=== PATIENT | female | born 1950 | race Caucasian/White ===

== ENCOUNTER 2018-08-31 18:00 | Inpatient (IN) | payer MEDICARE, OTHER ==
[2018-08-31] VITALS (169 sets, daily range): BP systolic 98–111; BP diastolic 45–93; PULSE 63–70; TEMP 97.5–97.6; O2SAT 76–100
[~2018-08-31] VITALS: Ht 149.9 cm; Wt 72.1 kg
--- NOTE | 2018-08-31 17:42 | NUR ---
Patient arrived to ICU room 1 via EMS from [facility]. Patient was moved to the bed and placed on the environmental monitoring specialist. All vital signs stable at this time. Patient's daughter here with her. Patient complaining of pain to her lower abdomen, but states it is from the catheter. She denies any further needs at this time. Blood sugar checked and it was found to be 62. 8 oz of orange juice given.
--- NOTE | 2018-08-31 18:30 | NUR ---
PATIENT'S DAUGHTER STATES THAT ALL OF HER MEDICATIONS ARE IN HER CAR AND THAT SHE WILL BRING THEM IN BEFORE SHE LEAVES FOR THE NIGHT. SO I WAS UNABLE TO DO PATIENTS MEDICATION REQ.
--- NOTE | 2018-08-31 19:15 | NUR ---
REPORT GIVEN TO RAMÓN AMBRIZ.
--- NOTE | 2018-08-31 19:28 | NUR ---
BLOOD GLUCOSE FOUND TO BE 57. D5NS INCREASED TO 75 ML/HR AND FOOD TRAY HAD ARRIVED.
--- NOTE | 2018-08-31 20:30 | NUR ---
PT CONFUSED. THINKS SHES IN [facility] AND THAT ITS MARCH 2020. PT DOES FOLLOW COMMANDS, BUT TAKES TIME TO PROCESS WHAT IS ASKED.
[2018-08-31 20:50] LABS: BILIRUBIN,TOTAL 0.3 mg/dL (0.0-1.0); POTASSIUM 4.1 mmol/L (3.4-5.0); TOTAL PROTEIN 6.4 gm/dL (6.4-8.2)
[2018-08-31 20:54] LABS: BASO # 0.1 (0.0-0.2); BASO % 0.6 % (0.0-2.0); EOS # 0.1 (0.0-0.7); GRAN # 8.8 (1.4-6.5); GRAN % 71.6 % (42.2-75.2); LYMPH # 1.8 (1.2-3.4); LYMPH % 14.2 % (20.0-51.0); MEAN CELL VOLUME 88 fl (80.0-100.0); MEAN CORPUSCULAR HGB CONC 31 g/dl (33.0-37.0); MEAN PLATELET VOLUME 9.8 fl (7.4-10.4); MONO # 1.5 (0.1-0.6); MONO % 12.2 % (1.7-9.3); PLATELET COUNT 520 K/mm3 (130-400); RED BLOOD COUNT 3.47 M/mm3 (4.10-5.30); REDCELL DISTRIBUTION WIDTH-CV 19.6 % (11.5-14.5)
[2018-08-31 20:55] LABS: PROTHROMBIN TIME 11.8 SECONDS (9.7-12.8)
[2018-08-31 21:00] LABS: HEMATOCRIT 30.4 % (37.0-47.0); HEMOGLOBIN 9.5 g/dl (12.5-16.0); MEAN CORPUSCULAR HEMOGLOBIN 27 pg (27.0-31.0)
[2018-08-31 21:00] LABS: CREATININE, serum 6.25 mg/dL (0.52-1.25)
[2018-09-01] VITALS (848 sets, daily range): BP systolic 87–131; BP diastolic 41–61; PULSE 69–108; TEMP 97.3–98.8; O2SAT 73–100
[2018-09-01 03:41] LABS: BASO # 0.1 (0.0-0.2); BASO % 0.8 % (0.0-2.0); EOS # 0.3 (0.0-0.7); EOS % 3.3 % (0-4.0); GRAN # 7.3 (1.4-6.5); GRAN % 70.7 % (42.2-75.2); LYMPH # 1.3 (1.2-3.4); LYMPH % 12.4 % (20.0-51.0); MEAN CELL VOLUME 88 fl (80.0-100.0); MEAN CORPUSCULAR HGB CONC 31 g/dl (33.0-37.0); MEAN PLATELET VOLUME 9.7 fl (7.4-10.4); MONO # 1.3 (0.1-0.6); MONO % 12.4 % (1.7-9.3); PLATELET COUNT 460 K/mm3 (130-400); RED BLOOD COUNT 3.14 M/mm3 (4.10-5.30); REDCELL DISTRIBUTION WIDTH-CV 19.8 % (11.5-14.5)
[2018-09-01 03:43] LABS: HEMATOCRIT 27.5 % (37.0-47.0); HEMOGLOBIN 8.6 g/dl (12.5-16.0); MEAN CORPUSCULAR HEMOGLOBIN 27 pg (27.0-31.0)
[2018-09-01 03:53] LABS: CHOLESTEROL RISK RATIO 3.8; POTASSIUM 4.2 mmol/L (3.4-5.0)
[2018-09-01 04:07] LABS: CREATININE, serum 5.85 mg/dL (0.52-1.25)
[2018-09-01 04:24] LABS: ALBUMIN 2.6 gm/dL (3.5-5.0); BILIRUBIN,TOTAL 0.2 mg/dL (0.0-1.0); TOTAL PROTEIN 5.6 gm/dL (6.4-8.2)
--- NOTE | 2018-09-01 04:30 | NUR ---
PT THINKS SHES IN [facility] AND ITS MARCH 2020. PT RANDOMLY TALKING ABOUT BARKING DOGS. AT TIMES HAS NORMAL SPEECH, BUT REVERTS BACK OFTEN TO INTERMITTENT CONFUSION.
[2018-09-01] MEDS ORDERED: HCTZ 25MG TAB25 MG PO (07:32)
[2018-09-01] MEDS ORDERED: VASOTEC20 MG PO (07:34)
[2018-09-01] MEDS ORDERED: GLUCOPHAGE XR500 M1 PO (07:35)
[2018-09-01] MEDS ORDERED: CELLCEPT 5500 MG/TAB PO (07:37)
[2018-09-01] MEDS ORDERED: LEXAPRO 10MG10 MG PO (07:38)
[2018-09-01] MEDS ORDERED: METOPROLOL PO (07:39)
[2018-09-01] MEDS ORDERED: SINEQUAN 1010 MG/CAP PO (07:40)
[2018-09-01] MEDS ORDERED: ASPIRIN 81M81 MG/TA2 PO (07:41)
[2018-09-01] MEDS ORDERED: LIPITOR 40MG TA40 MG PO (07:42)
[2018-09-01] MEDS ORDERED: SYNTHROID0.05 MG/TA PO (07:42)
--- NOTE | 2018-09-01 07:50 | NUR ---
Pt AAOx2, able to state: name, hospitalization. Unable to state city, date, year. Follows commands correctly. Conferstation confused and inappropriate. Pt stating she is seeing smoke fill the room - anxiety denied and no anxiety appears to be present. Pt exhibiting bilateral arm tremors when grasping items. Remains incontinent. No family/visitors present. Call light within reach - unable to correctly use call light - bed alarm on, door and window to room open - other staff on unit notified of increased risk to fall.
--- NOTE | 2018-09-01 10:46 | NUR ---
Philomena Gibson, pt's DPOA, is on her way in to see pt
--- NOTE | 2018-09-01 10:46 | NUR ---
MD Joey in room assessing pt
[2018-09-01 12:10] LABS: ALBUMIN 3.2 gm/dL (3.5-5.0); BILIRUBIN,TOTAL 0.3 mg/dL (0.0-1.0); POTASSIUM 3.9 mmol/L (3.4-5.0); TOTAL PROTEIN 5.9 gm/dL (6.4-8.2)
[2018-09-01 12:15] LABS: CALCIUM 12.7 mg/dL (8.4-10.2); CREATININE, serum 5.57 mg/dL (0.52-1.25)
--- NOTE | 2018-09-01 12:27 | NUR ---
Pt out of bed to chair with Physical Therapy - standby assist with walker and gait belt. Daughter at bedside, has spoken with MD Joey and MD Thai on unit and requesting daughter (Anusha) not leave until he has spoken with her
[2018-09-01 16:52] LABS: ALBUMIN 3.1 gm/dL (3.5-5.0); BILIRUBIN,TOTAL 0.3 mg/dL (0.0-1.0); CALCIUM 12.1 mg/dL (8.4-10.2); POTASSIUM 4.2 mmol/L (3.4-5.0); TOTAL PROTEIN 5.8 gm/dL (6.4-8.2)
[2018-09-01 16:54] LABS: CREATININE, serum 5.31 mg/dL (0.52-1.25)
--- NOTE | 2018-09-01 20:00 | NUR ---
PT UP TO COMMODE AND AMBULATED WELL. PT UNAWARE OF MONTH/YEAR AND PRESENT CITY. PT CONVERSATION IS CONFUSED. PT DENIES PAIN AT THIS TIME, BUT STATES WHEN SHE HAS A BM HER RIGHT SIDE OF ABD CRAMPS.
[2018-09-02] VITALS (589 sets, daily range): BP systolic 113–168; BP diastolic 56–88; PULSE 77–98; TEMP 97.3–98.1; O2SAT 77–98
[2018-09-02 06:12] LABS: ALBUMIN 3.2 gm/dL (3.5-5.0); BILIRUBIN,TOTAL 0.2 mg/dL (0.0-1.0); CALCIUM 11.8 mg/dL (8.4-10.2); POTASSIUM 4.3 mmol/L (3.4-5.0); TOTAL PROTEIN 6.2 gm/dL (6.4-8.2)
[2018-09-02 06:14] LABS: CREATININE, serum 5.16 mg/dL (0.52-1.25)
--- NOTE | 2018-09-02 10:17 | NUR ---
MD Jeff and MD Joey in to assess pt
--- NOTE | 2018-09-02 11:02 | NUR ---
Per MD Joey request for records on Cr. labs: Yunior Kaplan and Daisy Donis (Dr. Zuñiga) medical records office closed on weekends.
--- NOTE | 2018-09-02 12:32 | NUR ---
Patient had recently moved in with her daughter in [place], [place] and the family has been working to get the patient a placement at a facility and there has been mention of [facility] as patient presents with confustion. Patient's family members are very supportive (daughter nAusha ANDERSEN [phone], daughter CHERELLE Pereira [phone]). Patient does not currently have a primary care physician, her pharmacy is [facility] ([place]), and she does have advance directives completed. Patient will either discharge to home with her daughter or possibly to a place like the [facility] ([place]) if doctor's feel that is appropriate. medical and health services manager will follow as needed.
--- NOTE | 2018-09-02 20:00 | NUR ---
PT HAS CONFUSED CONVERSATION. PT PUSHING CALL LIGHT MULTIPLE TIMES CALLING FOR NURSE WHILE NURSE WAS IN PT ROOM.
--- NOTE | 2018-09-02 22:18 | NUR ---
PT YELLING "HELP ME". PT FOUND LAYING HALF WAY OUT OF THE BED, SHE HAD RIPPED APART THE BIPAP MASK AND TAKEN IT OFF. WHEN WALKING IN THE ROOM SHE PROCEEDED TO ASK ME FOR HELP THEN WHEN ATTEMPTING TO HELP HER BACK IN BED AND PLACE BIPAP MASK ON STATED "WHO ARE YOU" AND ACTED SCARED. PT REFUSED TO PUT NASAL CANULA BACK ON. PT WAS SWIINGING AT NURSE KATINA AND GRABBING BOTH NURSE KATINA AND ASHLEYS SCRUBS AND ARMS. PT WAS EVENTUALLY TALKED INTO PUTTING BIPAP MASK BACK ON. [facility] HOPKINS IN DEPT AND WAS INFORMED OF INCIDENT.
--- NOTE | 2018-09-02 23:45 | NUR ---
2345:PT A&0 X3. ATTEMPTING TO GET PATIENTS BLOOD SUGAR. PT REFUSING. 0023:PT REFUSING BLOOD SUGAR. WITH DIFFICULTY TO HEAR WHAT PT WAS SAYING IT WAS SUGGUESTED TO PUT HER ON NASAL CANULA SO WE COULD TALK, THEN HELD THE BIPAP TO HER FACE REFUSING TO TAKE BIPAP OFF. PT STATED "SOMTHING IS WRONG ABOUT YOU AND THE OTHER NURSE" WHILE GRABBING MY HAND. RAMÓN ORTEGA ENTERS THE ROOM AND WHEN TRYING TO EXPLAIN TO PT WHY WE NEED A BLOOD SUGAR, THE PT TOLD THE NURSE JORDAN "SHUT UP!" POINTING AT HER AND GRABBING HER SCRUBS. RAMÓN KABARETAIL MANAGEMENT KEYHOLDER CALLED TO ROOM. AFTER DISCUSSION OF VERBAL ABUSE, PT ALLOWED BLOOD SUGAR TO BE TAKEN AND MEDICATIONS ADMINISTERED. PT CALM IN BED.
[2018-09-03] VITALS (564 sets, daily range): BP systolic 139–174; BP diastolic 74–93; PULSE 79–103; TEMP 97.8–98.4; O2SAT 87–99
[2018-09-03 05:36] LABS: MEAN CELL VOLUME 87 fl (80.0-100.0); MEAN CORPUSCULAR HGB CONC 31 g/dl (33.0-37.0); MEAN PLATELET VOLUME 9.8 fl (7.4-10.4); PLATELET COUNT 461 K/mm3 (130-400); RED BLOOD COUNT 3.02 M/mm3 (4.10-5.30); REDCELL DISTRIBUTION WIDTH-CV 20.4 % (11.5-14.5)
[2018-09-03 05:44] LABS: HEMATOCRIT 26.4 % (37.0-47.0); HEMOGLOBIN 8.3 g/dl (12.5-16.0); MEAN CORPUSCULAR HEMOGLOBIN 27 pg (27.0-31.0)
[2018-09-03 05:50] LABS: ALBUMIN 3.4 gm/dL (3.5-5.0); BILIRUBIN,TOTAL 0.2 mg/dL (0.0-1.0); CALCIUM 11.6 mg/dL (8.4-10.2); TOTAL PROTEIN 6.6 gm/dL (6.4-8.2)
[2018-09-03 06:11] LABS: CREATININE, serum 5.36 mg/dL (0.52-1.25)
[2018-09-03 09:32] LABS: LYMPHOCYTE 3 % (20.0-51.0); NEUTROPHILS 92 % (42.0-75.2); PLATELET ESTIMATE INCREASED (NORMAL)
[2018-09-03 09:34] LABS: ANISOCYTOSIS 1+
[2018-09-03 09:35] LABS: HYPOCHROMIA 1+
--- NOTE | 2018-09-03 12:55 | NUR ---
AURA called leon in finance to inquire about insurance. Leon called Jazmyne and confirmed that patient does have medicare and a secondary. AURA attended clinical rounding. Patient was unable to talk with and appeared confused. AURA will follow up with daughter to discuss [facility] placement.
--- NOTE | 2018-09-03 13:05 | NUR ---
Pt off unit to cathlab
--- NOTE | 2018-09-03 13:25 | NUR ---
ALL MEDICATIONS GIVEN WITH VERBAL ORDER AND READBACK WITH MD. SEE MERGE FOR ALL MEDICATION ADMIN TIMES. SEE MERGE FOR ALL RASS ASSESSMENTS DURING AND POST PROCEDURE.
--- NOTE | 2018-09-03 14:39 | NUR ---
SW called patients daughter Anusha. She reports her mother had been living independently until last week in [place] but that it was not a good situation because she was depressed and not caring for herself including not eating, drinking, or taking medications. Patient then moved with her daughter in [place] when she got worse and daughter took her to the [facility] in [place] on 08/31/18. That day they noticed she wasnt medically stable and transfered her out. Patients daughter would like her to return to the [facility] unit if possible on dc. She reports she has an apartment at [facility] which are [facility] subsidized. SW called the [facility] unit who reports they are not holding her a bed but once she is medically stable if she is still exibiting behaviors they would be willing to screen her again for admission. AURA will keep the [facility] unit updated on patients status.
--- NOTE | 2018-09-03 15:00 | NUR ---
Kylee Tavares and CHERELLE called to update: procedure went without difficulty. Pt resting in room, vital signs stable, MD Joey stated that he wanted hemodialysis to start today.
[2018-09-03 15:57] LABS: COLLECTION METHOD CATHETER
[2018-09-03 16:08] LABS: MUCOUS Present /lpf; PH 5 (5-8); SQUAMOUS EPITHELIAL 0-2 /hpf; URINE APPEARANCE Hazy; URINE BACTERIA Rare /hpf; URINE BILIRUBIN Negative (NEGATIVE); URINE BLOOD 2+ (NEGATIVE); URINE COLOR Straw; URINE GLUCOSE Negative (NEGATIVE); URINE KETONE Negative (NEGATIVE); URINE LEUKOCYTE ESTERASE Negative (NEGATIVE); URINE NITRATE Negative (NEGATIVE); URINE PROTEIN(semi-quant) Negative (NEGATIVE); URINE RBC >50 /hpf; URINE UROBILINOGEN Negative (NEGATIVE)
--- NOTE | 2018-09-03 19:55 | NUR ---
Patient assessment completed and charted at this time, please see documentation for details. Patient resting in bed, partially confused, daughter at bedside. All questions and concerns addressed at this time, call light within reach. Dialysis catheter has minimal drainage visible through tegaderm. Will continue to monitor and assess.
[2018-09-04] VITALS (574 sets, daily range): BP systolic 134–158; BP diastolic 70–90; PULSE 78–100; TEMP 97.4–98.6; O2SAT 89–100
[2018-09-04 05:04] LABS: MEAN CELL VOLUME 87 fl (80.0-100.0); MEAN CORPUSCULAR HGB CONC 31 g/dl (33.0-37.0); MEAN PLATELET VOLUME 9.3 fl (7.4-10.4); PLATELET COUNT 448 K/mm3 (130-400); RED BLOOD COUNT 3.05 M/mm3 (4.10-5.30); REDCELL DISTRIBUTION WIDTH-CV 20.7 % (11.5-14.5)
[2018-09-04 05:14] LABS: ALBUMIN 3.3 gm/dL (3.5-5.0); BILIRUBIN,TOTAL 0.4 mg/dL (0.0-1.0); CALCIUM 10.7 mg/dL (8.4-10.2); MAGNESIUM 1.4 mg/dL (1.6-2.3); POTASSIUM 4.3 mmol/L (3.4-5.0); TOTAL PROTEIN 6.5 gm/dL (6.4-8.2)
[2018-09-04 05:23] LABS: CREATININE, serum 5.12 mg/dL (0.52-1.25)
[2018-09-04 05:28] LABS: HEMATOCRIT 26.6 % (37.0-47.0); HEMOGLOBIN 8.3 g/dl (12.5-16.0); MEAN CORPUSCULAR HEMOGLOBIN 27 pg (27.0-31.0)
[2018-09-04 07:53] LABS: BAND 2 % (0-10); NEUTROPHILS 96 % (42.0-75.2)
[2018-09-04 07:54] LABS: PLATELET ESTIMATE INCREASED (NORMAL)
[2018-09-04 07:55] LABS: ANISOCYTOSIS 1+; HYPOCHROMIA 1+; POIKILOCYTOSIS 1+
--- NOTE | 2018-09-04 08:00 | NUR ---
PATIENT RESTING IN BED. PATIENT IS MUCH MORE AWAKE TODAY. SHE DENIES ANY PAIN. SHE STATES SHE MAINLY IS JUST TIRED FROM NOT SLEEPING MUCH LAST NIGHT DUE TO A LOUD PATIENT ACCROSS THE LEON. SHE WAS ABLE TO PICK OUT WHAT FOOD SHE WANTED FOR BREAKFAST. SHE DENIES ANY FURTHER NEEDS AT THIS TIME
--- NOTE | 2018-09-04 09:38 | NUR ---
Initial visit; Patient thanked Tobacco Flavorer for looking in on her and offering God's blessings.
--- NOTE | 2018-09-04 09:44 | NUR ---
AURA attended clinical rounding. Patient is awake and talking today. has ordered PT/OT/ST as well as a psych consult. AURA will continue to follow.
--- NOTE | 2018-09-04 12:15 | NUR ---
PATIENT TO [facility] ROOM 18 FOR DIALYSIS.
--- NOTE | 2018-09-04 14:57 | NUR ---
PATIENT ARRIVED BACK FROM DIALYSIS. SHE STATES SHE IS PRETTY TIRED SO SHE WANTS TO SLEEP FOR AROUND AN HOUR AND THEN GET CLEANED UP AND EAT.
--- NOTE | 2018-09-04 19:30 | NUR ---
REPORT GIVEN TO RAMÓN MARLEY.
--- NOTE | 2018-09-04 19:40 | NUR ---
Bedside report received from Rahel Carrasquillo RN. Pts daughter at bedside during this time. Personal belongings with in reach with eye glasses on face.
--- NOTE | 2018-09-04 23:15 | NUR ---
Pts daughter Philomena called for an update on mother. Questions asked regarding creat & ca labs. Discuss resp status currently as well as plan for tomorrow including dialysis and mpossibly movement to the medical floor. Agreement for staff to call if anything is needed by pts daughter throught out the night. Philomena reported will be in tomorrow for a short time after work. Also family expressed desire for a phsyician update from either Jeovanny Andre or Joey in the morning.
[2018-09-05] VITALS (609 sets, daily range): BP systolic 149–171; BP diastolic 74–86; PULSE 76–98; TEMP 97.9–98.8; O2SAT 89–100
--- NOTE | 2018-09-05 02:00 | NUR ---
Pt awoke approx at 0030. At that time Bipap was removed. Once encouraged pt to reapply the Bipap the pt reported not wanting to put it on at this time. Pt agreed to reapply the Bipap at 0200. When 0200 arrived pt denied used once again and asked to just apply O2 via NC. 2L was applied at this time.
[2018-09-05 05:50] LABS: MEAN CELL VOLUME 85 fl (80.0-100.0); MEAN CORPUSCULAR HGB CONC 32 g/dl (33.0-37.0); MEAN PLATELET VOLUME 9.3 fl (7.4-10.4); PLATELET COUNT 457 K/mm3 (130-400); RED BLOOD COUNT 3.18 M/mm3 (4.10-5.30)
[2018-09-05 06:03] LABS: ALBUMIN 3.1 gm/dL (3.5-5.0); BILIRUBIN,TOTAL 0.4 mg/dL (0.0-1.0); CALCIUM 9.7 mg/dL (8.4-10.2); CREATININE, serum 3.12 mg/dL (0.52-1.25); POTASSIUM 3.9 mmol/L (3.4-5.0); TOTAL PROTEIN 6.2 gm/dL (6.4-8.2)
--- NOTE | 2018-09-05 06:16 | NUR ---
Update provided to daughter Philomena.
[2018-09-05 06:20] LABS: HEMATOCRIT 27.1 % (37.0-47.0); HEMOGLOBIN 8.7 g/dl (12.5-16.0); MEAN CORPUSCULAR HEMOGLOBIN 27 pg (27.0-31.0)
--- NOTE | 2018-09-05 06:55 | NUR ---
Pt accompanied for hemodyalisis by Manish at this time in hospital bed. Pt requested to go in bed rather than by wheelchair.
--- NOTE | 2018-09-05 06:58 | NUR ---
Report provided to Althea MELGAR. Pt not on the unit currently for dialysis.
--- NOTE | 2018-09-05 07:15 | NUR ---
Report received from RAMÓN Braswell. Patient is currently at dialysis.
--- NOTE | 2018-09-05 07:30 | NUR ---
Patient assess by this RN in ICU 18 while she receives dialysis. No concerns at this time. Patient and supervisor film processingManish encouraged to call with any questions or concerns.
[2018-09-05 08:57] LABS: LYMPHOCYTE 15 % (20.0-51.0); NEUTROPHILS 75 % (42.0-75.2); PLATELET ESTIMATE INCREASED (NORMAL)
[2018-09-05 09:01] LABS: BURR CELLS 2+; POIKILOCYTOSIS 1+
[2018-09-05 09:02] LABS: ANISOCYTOSIS 1+; HYPOCHROMIA 1+
[2018-09-05 09:03] LABS: MICROCYTOSIS 1+
--- NOTE | 2018-09-05 10:15 | NUR ---
Patient returns from Dialysis at this time. VS WNL. Patient states she hadn't slept well and would like to nap. Call light within reach. Will continue to monitor.
--- NOTE | 2018-09-05 11:21 | NUR ---
AURA talked with patient after clinical rounding about discharge plans. She is open to going to rehab after discharge if inpatient geriatric psych is not needed. She did not want to make a decision about placement and asked for SW to contact patients daughter. AURA talked with patients daughter Sathish. She said she is still worried about patients depression still and wants to get that under control prior to her going skilled. [facility] is still her first option. AURA informed her of psych consult and that the eval should be completed today. Sathish would like to talk with Dr Crews if possible. AURA discussed long-term vs [facility]. She would like patient to go to [facility] if SN is the best place for her. She will look into secondary choices but does not want [facility] in [place]. AURA will follow up with sathish for second choice. Verbal choice form placed in chart and referral to [facility] made. Patient is moving to floor today.
--- NOTE | 2018-09-05 19:15 | NUR ---
Bedside report given to RAMÓN Braswell. Plan of care reviewed. Care turned over at this time.
--- NOTE | 2018-09-05 19:20 | NUR ---
Bedside report received from Althea MELGAR. Pt sitting on bedside commode at this time, was assisted into recliner X1 stand by assist. Eye glasses in place at this time.
--- NOTE | 2018-09-05 21:00 | NUR ---
Pt assessment complete. Pt resting in chair at this time with eye glasses on face and television on. Pt requested to walk before getting into bed. Slight confusion noted upon entering the room, pt stated "I am waiting for my nurse to come back to clean me up." Pt was notified that it had been a couple hours since on the commode and this nurse observed the off going day shift nurse clean pt up prior to assisting pt into the chair. Pt walked with a steady gait down the ICU hallway with use of a walker.
--- NOTE | 2018-09-05 23:44 | NUR ---
Daughter Philomena called for an update. Discussed adding home antihypertensive medication to help with current HTN. Reported pt just had Bipap placed by RT and pt agreed to wear for 6 hours this shift. Daughter expressed concern about PIO inhibitor medication restart due to the side effect of a cough noted in the pt prior to hospitalization as well as having "cotton mouth". César was less concerned about the cotton mouth due to a possible benefit for pt "maybe will want to drink more." Medication regimen will need to be address with physicians. Clarified that pt is not currently being followed by a potato spotter at home or this hospital stay.
[2018-09-06] VITALS (639 sets, daily range): BP systolic 137–181; BP diastolic 76–91; PULSE 84–98; TEMP 97.5–98.8; O2SAT 92–100
[2018-09-06 05:12] LABS: MEAN CELL VOLUME 85 fl (80.0-100.0); MEAN CORPUSCULAR HGB CONC 32 g/dl (33.0-37.0); MEAN PLATELET VOLUME 9.2 fl (7.4-10.4); PLATELET COUNT 465 K/mm3 (130-400); RED BLOOD COUNT 3.52 M/mm3 (4.10-5.30); REDCELL DISTRIBUTION WIDTH-CV 21.1 % (11.5-14.5)
[2018-09-06 05:13] LABS: HEMOGLOBIN 9.6 g/dl (12.5-16.0); MEAN CORPUSCULAR HEMOGLOBIN 27 pg (27.0-31.0)
[2018-09-06 05:21] LABS: ALBUMIN 3.3 gm/dL (3.5-5.0); BILIRUBIN,TOTAL 0.5 mg/dL (0.0-1.0); CALCIUM 9.9 mg/dL (8.4-10.2); CREATININE, serum 2.79 (0.52-1.25); MAGNESIUM 1.9 mg/dL (1.6-2.3); POTASSIUM 4.1 mmol/L (3.4-5.0); TOTAL PROTEIN 6.4 gm/dL (6.4-8.2)
[2018-09-06 05:37] LABS: HYPOCHROMIA 1+; LYMPHOCYTE 15 % (20.0-51.0); MYELOCYTE 1 % (0-0); NEUTROPHILS 79 % (42.0-75.2); PLATELET ESTIMATE INCREASED (NORMAL)
[2018-09-06 05:38] LABS: ANISOCYTOSIS 2+; BURR CELLS 2+; SCHISTOCYTES 1+; TEAR DROP CELLS 2+
--- NOTE | 2018-09-06 06:25 | NUR ---
Pt daughter Philomena called for an update. Questions encouraged and answered. Notified pt did not sleep much. Replaced Bipap mask which improved complaints of air blowing into eyes. Update provided on increased BP with notification to Dr. Cook and will be addressed today.
--- NOTE | 2018-09-06 07:15 | NUR ---
REPORT RECEIVED FROM RAMÓN MARLEY. PATIENT SLEEPING WITH BIPAP ON. CARE ASSUMED AT THIS TIME.
--- NOTE | 2018-09-06 07:20 | NUR ---
Bedside report provided to Althea MELGAR.
--- NOTE | 2018-09-06 10:21 | NUR ---
AURA contacted girma zuñgia and requested a MH screen. They will come early afternoon.
--- NOTE | 2018-09-06 11:48 | NUR ---
AURA talked with Brandy at [facility] and Rosemary at the [facility]. Patient is accepted at the [facility] unit without a psych screen, however they cant accept until monday.
--- NOTE | 2018-09-06 15:40 | NUR ---
REPORT CALLED TO PAULINO ON MEDICAL FLOOR. PLAN OF CARE DISCUSSED. WILL TRANSFER PATIENT UP TO ROOM 314 SHORTLY.
--- NOTE | 2018-09-06 15:46 | NUR ---
PATIENT'S DAUGHTER, JACOB, CALLED WITH UPDATE THAT PATIENT WILL TRANSFER TO ROOM 314.
--- NOTE | 2018-09-06 17:35 | NUR ---
Patient arrived to room from unit at 1515 accompanied by ICU staff. Received report. Patient was observed transferring from wheelchair to recliner with standby assistance. Is noted to have a eason catheter to dependent drain with cloudy urine. RT has brought in a bi-pap for patient to use at night. Patient is alert and oriented at this time, it was reported that patient can have intermittant confusion. Lungs are clear, slight crackles noted at the base of the lungs. Heart rate is regular. No edema is noted. Pedal and radial pulses are readily palpable. Is observed to have scattered bruising to BUEs and abdomen. Call light is within reach, no further needs identified.
--- NOTE | 2018-09-06 21:00 | NUR ---
Completed medication administration and assessment; PT tolerated all cares and medications well; PT denied pain at time of assessment; PT and daughter had questions about diet and medications during time of care, all concerns answered at that time; PT A&Ox3 with intermittent confusion of cares, BS active x4, LCTA bilaterally, 2+ edema to bilateral LE, right IJ dialysis catheter in placed no redness, swelling, or drainage; PT denied further needs or concerns at time of exit; PT assisted to comfortable position in chair with call light within reach; Will continue to monitor. CDA
--- NOTE | 2018-09-07 00:58 | NUR ---
Administered PRN Hydralazine 25mg for SBP >165; PT tolerated PT medication well. CDA
--- NOTE | 2018-09-07 03:58 | NUR ---
PT resting well in bed with CPAP in place; No assessment needs or concerns at time of rounds during night; PT able to AMB to the restroom multiple times throughout the evening with walker and SBA; Cohen continues to drain yellow and clear dependent collection bag; Rt IJ dialysis cath in place; RH 22G flushing well and in place saline locked; No further needs assessed or reported at time of rounds; PT in comfortable position in bed with call light in reach; Will continue to monitor. CDA
[2018-09-07 04:11] VITALS: BP 163/75; PULSE 81; TEMP 97.9
[2018-09-07 06:01] LABS: MEAN CELL VOLUME 87 fl (80.0-100.0); MEAN CORPUSCULAR HGB CONC 32 g/dl (33.0-37.0); MEAN PLATELET VOLUME 9.2 fl (7.4-10.4); PLATELET COUNT 425 K/mm3 (130-400); RED BLOOD COUNT 3.18 M/mm3 (4.10-5.30); REDCELL DISTRIBUTION WIDTH-CV 21.1 % (11.5-14.5)
[2018-09-07 06:07] LABS: HEMOGLOBIN 8.8 g/dl (12.5-16.0); MEAN CORPUSCULAR HEMOGLOBIN 28 pg (27.0-31.0)
[2018-09-07 06:08] VITALS: BP 150/79
[2018-09-07 06:08] LABS: HEMATOCRIT 27.5 % (37.0-47.0)
[2018-09-07 06:11] LABS: CALCIUM 9.7 mg/dL (8.4-10.2); CREATININE, serum 3.15 (0.52-1.25); POTASSIUM 4.2 mmol/L (3.4-5.0)
[2018-09-07 06:34] LABS: BAND 3 % (0-10); LYMPHOCYTE 14 % (20.0-51.0); NEUTROPHILS 69 % (42.0-75.2); PLATELET ESTIMATE INCREASED (NORMAL)
[2018-09-07 06:35] LABS: BURR CELLS 1+; SCHISTOCYTES 1+
[2018-09-07 06:36] LABS: ANISOCYTOSIS 1+; POIKILOCYTOSIS 1+
--- NOTE | 2018-09-07 06:57 | NUR ---
Report given to RAMÓN Fried; No further questions or concerns at this time. CDA
--- NOTE | 2018-09-07 07:15 | NUR ---
Report received from RAMÓN Ludwig. PT in bed resting with eyes closed, appears to be asleep, will contiue to monitor.
[2018-09-07 08:49] VITALS: BP 157/69; PULSE 85; TEMP 98.5
--- NOTE | 2018-09-07 09:57 | NUR ---
Assessment charted. Pt asleep upon entry, awakens easily, wearing ear plugs for quiet as she states she did not sleep much that last 3 nights in ICU due to noise level in unit. Am pills given, ordered breakfast for her, deneis needs. Orientedx4. INT to RH. Vicki draining clear yellow drainage to DD at bag at side of bed. Denies pain. Will continue to monitor.
[2018-09-07 11:35] VITALS: BP 153/67; PULSE 85; TEMP 97.8
[2018-09-07 15:35] VITALS: BP 143/59; PULSE 63; TEMP 97.6
--- NOTE | 2018-09-07 18:27 | NUR ---
Pt has done well today. Up ambulating as tolerated with medical staff several times today. Daughter here at bedside wnating an update and wondering why she was not called for an update all day, passed on to hospitalist team and they will provide updates per her request. Called Dr. Cook and left VM regarding urine output from lasix per additional nursing order. No call received back at this time. Will give bedside shift report to nightshift nurse who will resume care.
[2018-09-07 21:37] VITALS: BP 137/60; PULSE 90; TEMP 97.5
[2018-09-08] VITALS: BP 151/74; PULSE 90; TEMP 97.4
--- NOTE | 2018-09-08 01:46 | NUR ---
Completed medication administration and assessment; PT tolerated all care and medications; PT A&Ox4, BS active x4, lungs CTA with slightly diminished bases bilaterally, AMB with walker and SBA; Cohen in placed draining yellow clear urine to dependent collection bag; PT denies further needs at time of assessment; PT continues to wear BiPAP during sleeping hours; HS FSBS trended down initially 75 WNL, offered a snack, 1200 64/82 post snack; No further needs or pain assessed at time of exit; PT assisted to comfortable position in bed with call light within reach; Will continue to monitor. CDA
[2018-09-08 03:56] VITALS: BP 155/69; PULSE 84; TEMP 98
--- NOTE | 2018-09-08 04:50 | NUR ---
PT resting well in bed with BiPAP in place; 0400 FSBS 80; No interventions required; No complaints or concerns at time of rounds; Cohen in place draining to dependent collection bag with yellow clear urine; No further assessed concerns at time of rounds; PT maintained comfortable position in bed with call light within reach; Will continue to monitor. CDA
[2018-09-08 06:34] LABS: BASO % 0.1 % (0.0-2.0); EOS # 0.3 (0.0-0.7); EOS % 1.9 % (0-4.0); GRAN # 9.5 (1.4-6.5); GRAN % 65.8 % (42.2-75.2); LYMPH # 2.4 (1.2-3.4); LYMPH % 16.3 % (20.0-51.0); MEAN CELL VOLUME 86 fl (80.0-100.0); MEAN CORPUSCULAR HGB CONC 32 g/dl (33.0-37.0); MEAN PLATELET VOLUME 9.6 fl (7.4-10.4); MONO # 2.1 (0.1-0.6); MONO % 14.2 % (1.7-9.3); PLATELET COUNT 436 K/mm3 (130-400); RED BLOOD COUNT 3.21 M/mm3 (4.10-5.30); REDCELL DISTRIBUTION WIDTH-CV 21.2 % (11.5-14.5)
[2018-09-08 06:41] LABS: HEMATOCRIT 27.5 % (37.0-47.0); HEMOGLOBIN 8.9 g/dl (12.5-16.0); MEAN CORPUSCULAR HEMOGLOBIN 28 pg (27.0-31.0)
[2018-09-08 06:44] LABS: BILIRUBIN,TOTAL 0.3 mg/dL (0.0-1.0); CALCIUM 9.7 mg/dL (8.4-10.2); CREATININE, serum 3.22 (0.52-1.25); POTASSIUM 3.9 mmol/L (3.4-5.0)
--- NOTE | 2018-09-08 06:59 | NUR ---
Report given to RAMÓN Edwards; No significant changes or concerns at change of shift. CDA
[2018-09-08 08:44] VITALS: BP 151/73; PULSE 81; TEMP 97.7
--- NOTE | 2018-09-08 09:45 | NUR ---
KELVIN IS AWAKE IN BED. NO COMPLAINTS. ASSISTANCE PROVIDED BY PHYSICAL THERAPY TO WALK IN THE HALLWAY AND TO GET UP IN THE CHAIR. SHE TOLERATES WELL.
[2018-09-08 11:59] VITALS: BP 143/70; PULSE 75; TEMP 98.2
--- NOTE | 2018-09-08 15:23 | NUR ---
PATIENT AMBULATES TO THE RESTROOM WITH STANDBY ASSIST. SHE IS STEADY ON HER FEET. JI CATHETER IS REMOVED PER DR. INFANTE. SHE TOLERATES WELL. SHE IS ABLE TO DO PERICARE ON HERSELF. NO OTHER NEEDS. WE ALSO DISCUSSED NEEDING TO DRINK 2L OF FLUIDS A DAY. SHE VERBALIZES UNDERSTANDING.
[2018-09-08 16:53] VITALS: BP 149/64; PULSE 86; TEMP 97.9
[2018-09-08 21:10] VITALS: BP 148/61; PULSE 18; TEMP 98.4
[2018-09-09] VITALS (8 sets, daily range): BP systolic 127–182; BP diastolic 47–77; PULSE 72–103; TEMP 97.6–98.3
--- NOTE | 2018-09-09 01:45 | NUR ---
Completed assessment and medication administration; PT tolerated all cares and medications well; PT continues to void yellow clear urine post eason extraction approximately 1700; INT 22G RH IV and RIJ non-tunneled dialysis cathin place; PT continues to wear BiPAP at night; PT A&Ox4, BS active x4, lung CTAB with diminished bases; Increased BP >165 SBP at 0000 VS administered PRN Hydralazine 20mg per order; FSBS 201 at 2100 calling for 6 units of INS which PT refused with discussion of history of trending hypoglycemia during evening hours, FSBS 123 at requiring no INS; No further needs at time of exit; PT assisted to comfortable position in bed with BiPAP on; Will continue to monitor. CDA
--- NOTE | 2018-09-09 04:54 | NUR ---
PT resting well in bed with BiPAP in place; Hydralazine 25mg PO given without result; NEW one time order for Hydralazine 10mg/0.5ml IV given per order via LUIS ENRIQUE Gauthier; HTN result per 15 minute VS check; No further acute pain or discomfort reported; PT maintained a comfortable position in bed with call light within in reach; Will continue to monitor. CDA
--- NOTE | 2018-09-09 06:54 | NUR ---
Report given to RAMÓN Edwards; No significant changes or concerns at time of shift change. CDA
--- NOTE | 2018-09-09 08:28 | NUR ---
PATIENT ASSESSMENT COMPLETED. SHE DENIES PAIN OR OTHER NEEDS AT THIS TIME BREAKFAST HAS BEEN ORDERED. SHE DENIES ANY DIFFICULTY WITH URINATING.
[2018-09-09 09:33] LABS: MEAN CELL VOLUME 85 fl (80.0-100.0); MEAN CORPUSCULAR HGB CONC 32 g/dl (33.0-37.0); MEAN PLATELET VOLUME 8.9 fl (7.4-10.4); PLATELET COUNT 444 K/mm3 (130-400); RED BLOOD COUNT 3.43 M/mm3 (4.10-5.30); REDCELL DISTRIBUTION WIDTH-CV 21.2 % (11.5-14.5)
[2018-09-09 09:35] LABS: HEMATOCRIT 29.3 % (37.0-47.0); HEMOGLOBIN 9.5 g/dl (12.5-16.0); MEAN CORPUSCULAR HEMOGLOBIN 28 pg (27.0-31.0)
[2018-09-09 09:43] LABS: CALCIUM 9.5 mg/dL (8.4-10.2); CREATININE, serum 2.94 (0.52-1.25); POTASSIUM 3.8 mmol/L (3.4-5.0)
[2018-09-09 10:03] LABS: BAND 5 % (0-10); EOSINOPHIL 1 % (0-4); HYPOCHROMIA 1+; LYMPHOCYTE 20 % (20.0-51.0); NEUTROPHILS 61 % (42.0-75.2); PLATELET ESTIMATE NORMAL (NORMAL)
[2018-09-09 10:04] LABS: ANISOCYTOSIS 2+
--- NOTE | 2018-09-09 12:50 | NUR ---
PATIENT UP IN CHAIR. DENIES NEEDS AT THIS TIME LUNCH HAS BEEN EATTEN.
--- NOTE | 2018-09-09 15:49 | NUR ---
PATIENT ASSISTED TO THE RESTROOM SHE IS STEADY ON HER FEET WITH WALKER. DENIES PAIN.
--- NOTE | 2018-09-09 18:39 | NUR ---
PATIENT UP IN THE CHAIR. SHE DENIES ANY NEEDS. SHE HAS EATTEN SUPPER AND IS GIVEN 2 UNITS
--- NOTE | 2018-09-09 20:29 | NUR ---
Patient assessed at this time. Denies having pain and discomfort. Dialysis catheter to right internal jugular. Gauze under tegaderm does have drainage. Site is without redness, warmth, swelling, and pain. Peripheral INT to right hand is patent, and without redness, warmth, swelling, and pain. Denies having any needs or concerns at this time. RT reports nocturnal study will occur tonight. Will call when patient is ready to get in bed. Voices no needs or concerns at this time. Call light is within reach. Sitting up in recliner watching TV.
[2018-09-10 00:06] VITALS: BP 151/64; PULSE 73; TEMP 98.3
--- NOTE | 2018-09-10 00:21 | NUR ---
Denies having pain and discomfort at this time. Stated that she was ready to get in bed. Called placed to RT as requested to set up nocturnal study. Voices no other needs or concerns at this time. Encouraged to let staff know if she needs anything. Call light is within reach.
--- NOTE | 2018-09-10 02:38 | NUR ---
IV to right hand came out while patient turning in bed. Attempted to left hand, unsuccessful. Attempted left forearm successful. Denies having any needs or concerns at this time. Resting in bed, call light is within reach.
[2018-09-10 04:14] VITALS: BP 152/63; PULSE 78; TEMP 98.2
--- NOTE | 2018-09-10 06:22 | NUR ---
Denies having pain and discomfort at this time. Did well througout the night without bipap. Denied having any SOB and dyspnea. Has been on room air throughout the night. Denies having any questions or concerns. Resting in bed with eyes closed at this time. Call light is within reach.
[2018-09-10 07:19] VITALS: BP 141/54; PULSE 77; TEMP 98
[2018-09-10 07:39] LABS: HEMATOCRIT 27.4 % (37.0-47.0); HEMOGLOBIN 8.7 g/dl (12.5-16.0); MEAN CELL VOLUME 87 fl (80.0-100.0); MEAN CORPUSCULAR HEMOGLOBIN 28 pg (27.0-31.0); MEAN CORPUSCULAR HGB CONC 32 g/dl (33.0-37.0); MEAN PLATELET VOLUME 9.4 fl (7.4-10.4); PLATELET COUNT 441 K/mm3 (130-400); RED BLOOD COUNT 3.16 M/mm3 (4.10-5.30); REDCELL DISTRIBUTION WIDTH-CV 21.6 % (11.5-14.5)
[2018-09-10 07:48] LABS: CALCIUM 9.1 mg/dL (8.4-10.2); CREATININE, serum 2.68 (0.52-1.25); POTASSIUM 4.1 mmol/L (3.4-5.0)
[2018-09-10 08:11] LABS: BAND 2 % (0-10); EOSINOPHIL 2 % (0-4); LYMPHOCYTE 17 % (20.0-51.0); NEUTROPHILS 67 % (42.0-75.2)
[2018-09-10 08:12] LABS: ANISOCYTOSIS 2+
[2018-09-10 08:13] LABS: PLATELET ESTIMATE INCREASED (NORMAL)
[2018-09-10] MEDS ORDERED: VASOTEC 5MG5 MG/TAB PO (09:38)
[2018-09-10] MEDS ORDERED: PREDNISONE20 MG PO (09:40)
--- NOTE | 2018-09-10 10:53 | NUR ---
AURA attended clinical rounds. Patient can discharge today to [facility] in [place]. Patient would like AURA to contact her daughter, Philomena, about discharge and IM. AURA then contacted Rosemary at the [facility] and she reports they have not "officially" accepted patient because they have not rec'd any paperwork on her. AURA faxed patient's information from this hospital stay and Rosemary will contact AURA after it is reviewed by the doctor.
[2018-09-10 11:25] VITALS: BP 134/52; PULSE 74; TEMP 97.4
--- NOTE | 2018-09-10 14:01 | NUR ---
AURA spoke with Rosemary at the [facility]. She reports that she is unsure if patient will be accepted because it was recommended that she needs post acute rehab and the [facility] is unable to provide those services. She also reports the labs aren't normal. AURA reported that the doctor says her labs are stable. Rosemary reported that patient may be able to be admitted to their skilled rehab unit and receive psych services. AURA then received a call from Faith with [facility] rehab unit. She requested more PT and OT notes. Faith will contact AURA if they are able to accept. AURA then contacted Philomena, patient's daughter, she is agreeable to this plan.
[2018-09-10 16:01] VITALS: BP 144/56; PULSE 82; TEMP 98.5
--- NOTE | 2018-09-10 19:10 | NUR ---
Patient sitting in chair most of the day. Encouraged to increase fluids. Awaiting social work to get transport and nursing facility approved for her arrival. Possibly discharge tomorrow to rehab in [place]. Dialysis catheter ok to remove prior to discharge. Creatinine 2.68, improving. Edema +1 bilateral legs. Patient has been on room air and sats have been stable. patient has denied pain or dizzines, palpitations, n/v. patient is alert and oriented. Planning for discharge for tomorrow 09/11.
--- NOTE | 2018-09-10 19:22 | NUR ---
Patient sitting in recliner watching tv. Assessment completed- denies pain, lung sounds clear, abdominal sounds active, pulses +3, alert and oriented x4. Encouraging fluids- pt has jug at bedside. IV site free of complications. Right IJ dialysis catheter has some old drainage, but is dried. Pt has no needs at this time.
[2018-09-10 21:12] VITALS: BP 152/59; PULSE 75; TEMP 97.3
[2018-09-11 00:33] VITALS: BP 172/64; PULSE 75; TEMP 98.4
[2018-09-11 01:44] VITALS: BP 147/63
[2018-09-11 04:26] VITALS: BP 136/57; PULSE 83; TEMP 98.9
--- NOTE | 2018-09-11 05:49 | NUR ---
Pt slept for most of the night, one elevaed BP that came down with PRN hydralazine. No reports of pain. No further needs at [facility].
--- NOTE | 2018-09-11 06:44 | NUR ---
Report given to RAMÓN Maciel and RAMÓN Tejeda. Patient asleep in bed at this time.
[2018-09-11 07:21] VITALS: BP 135/57; PULSE 79; TEMP 98.3
--- NOTE | 2018-09-11 09:47 | NUR ---
Patient sleeping in bed upon entry with ear plugs in. Shift assessment complete. Patient denies pain, dizziness, SOB, palpitations. Patient on room air, slept ok through the night. Lungs clear anteriorly, doesn't follow instructions well to "take deep breaths". hard to hear lungs posteriorly. Encouraged fluid intake. BLE edmea +1. Patient possibly discharging to swing bed today. breakfast ordered and call light within reach.
[2018-09-11] MEDS ORDERED: NOVOLOG 100U100 U/M1 SQ (10:04)
--- NOTE | 2018-09-11 10:08 | NUR ---
AURA attended clinical rounds to discuss discharge. Patient will discharge today to [facility]. AURA called patient's daughter, Philomena, to review IM. gave verbal consent for IM over the phone. Philomena will transfer patient to today at 11:30am. AURA will fax discharge orders once they're complete.
--- NOTE | 2018-09-11 10:30 | NUR ---
Attended rounds with Discussed patient going to swing bed in [place] and psych visiting with her there. Patient seems less confused. Patient states "i feel much better than when i first arrived. I think i was depressed." Patient currently eating and then will remove dialysis catheter. Dried blood around site, otherwise, no redness or drainage. Daughter will arrive around 1130 to transport to [place] swing bed.
--- NOTE | 2018-09-11 11:31 | NUR ---
Patients dialysis catheter removed by RAMÓN Knapp. Catheter 16cm, intact. ramón Maciel holding pressure for 15 min on patient. LFA IV discontinued and removed with catheter tip intact, no signs of infiltration or phlebitis. Awaiting patients daughter to arrive for discharge. Patient requesting andreceiving shower cap prior to leaving. Instructed not to get dialysis catheter site wet for 24 hours.
--- NOTE | 2018-09-11 11:34 | NUR ---
Dialysis catheter removed per this nurse. Order reviewed. 16 cm length with the cath tip in place. Sutures x2 removed. No pain or discomfort noted per the patient during or following removal. RAMÓN Maciel holding pressure at site unitl bleeding has stops.
[2018-09-11 11:43] VITALS: BP 135/57; PULSE 79; TEMP 98.3
--- NOTE | 2018-09-11 12:08 | NUR ---
Pt walked out of the building at this time.
--- NOTE | 2018-09-11 12:49 | NUR ---
PATIENT ESCORTED OUT BY RAMÓN PERALTA AND DAUGHTER. THIS NURSE CALLED AND GAVE REPORT TO [facility] IN [place].
== END 2018-09-11 12:50 | disposition swing bed (61) | DRG 682 ==
LOC: ICU 18:00 → MEDICAL 09-06 15:48
PROVIDERS: Hospitalist; Internal Medicine; Internal Medicine Pulmonary Disease; Nurse Practitioner; Physician Assistant; ADMIT Internal Medicine
PROC: 02H633Z Insertion of Infusion Device into Right Atrium, Percutaneous Approach (ICD-10-PCS; principal; 2018-09-03)
PROC: 5A1D70Z Performance of Urinary Filtration, Intermittent, Less than 6 Hours Per Day (ICD-10-PCS; 2018-09-04)
PROC: 5A1D70Z Performance of Urinary Filtration, Intermittent, Less than 6 Hours Per Day (ICD-10-PCS; 2018-09-05)
DX: N17.9 Acute kidney failure, unspecified (principal); G93.41 Metabolic encephalopathy; J81.0 Acute pulmonary edema; J90 Pleural effusion, not elsewhere classified; I10 Essential (primary) hypertension; E11.649 Type 2 diabetes mellitus with hypoglycemia without coma; E03.9 Hypothyroidism, unspecified; D86.9 Sarcoidosis, unspecified; E78.5 Hyperlipidemia, unspecified; Z86.73 Personal history of transient ischemic attack (TIA), and cerebral infarction without residual deficits; E83.52 Hypercalcemia; I95.9 Hypotension, unspecified; D64.9 Anemia, unspecified; F32.9 Major depressive disorder, single episode, unspecified
CPT/HCPCS: 99223-AI; 99233-AI; 99239; A9284; J0360; J0630; J1644; J1815; J1940; J1956; J2250; J2405; J2430; J2920; J3010; J3475; J7030; J7120; J7512; P9047